=== PATIENT | male | born 1990 | race Caucasian/White ===

== ENCOUNTER 2024-06-02 22:04 | Emergency (ER) | payer SELFPAY ==
[~2024-06-02] VITALS: Ht 165.1 cm; Wt 86.2 kg
[2024-06-02 22:20] VITALS: BP 157/92; PULSE 116; RESP 16; TEMP 97.3; O2SAT 94; O2SAT 99
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
--- NOTE | 2024-06-02 22:27 | NUR ---
BIBA ALS TO 7
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
[2024-06-02] MEDS: NACL 0.9% 1,000 ML IV ONE (23:01)
--- NOTE | 2024-06-02 23:20 | NUR ---
PT ENDORSES LEFT ARM PAIN AND NUMBNESS TO PINKLY RING FINGER. PT STATES PAIN TO LEFT ARM IS NEW BUT THE NUMBNESS TO L ARM PINKY FINGER HAS BEEN GOING ON FOR ABOUT A YEAR. STATES PAIN LEVEL 5/10. DR. PERDOMO AWARE. DR. PERDOMO ORDERS A NEW IV TO BE PLACED IN R ARM AND CONTINUE FLUIDS IN R ARM. VSS ON BEDSIDE MONITOR. CALL LIGHT WITHIN REACH. SAFETY MEASURES IN PLACE.
[2024-06-02 23:54] VITALS: BP 118/71; PULSE 107; RESP 19; TEMP 98.3; O2SAT 97
--- NOTE | 2024-06-02 23:54 | NUR ---
Patient discharged with v/s stable. Written and verbal after care instructions given and explained. Patient verbalized understanding. Ambulatory with steady gait. All questions addressed prior to discharge. Advised to follow up with PMD.
== END 2024-06-02 23:54 | disposition home or self-care (01) ==
LOC: MED 22:04
DX: F10.129 Alcohol abuse with intoxication, unspecified (principal); R20.0 Anesthesia of skin
CPT/HCPCS: 96360; 99283; J7030